=== PATIENT | female | born 2000 | race Two or more races ===

== ENCOUNTER 2024-05-01 09:59 | Observation (INO) | payer OTHER, SELFPAY ==
[2024-05-01 04:25] VITALS: BP 128/64
--- NOTE | 2024-05-01 04:29 | ED.GENMED ---
History of Present Illness
<Amrita Sharpe MD, Resident - Last Filed: 05/01/24 05:26>
General
Chief Complaint: Abdominal Symptoms
Source: patient
Time Seen by Provider: 05/01/24 04:28
History of Present Illness
History of Present Illness:
The patient is a 23 year old female who presented to ER today complaining from nausea, diarrhea and abdominal pain. The patient reported that she ate a stake 2 days ago and believes she had food poisoning from this stake. She started to have
abdominal pain/cramps, nausea, vomiting 2 days ago. She denies blood with her vomiting or stool. She also reports feeling chills and fever for last 2 days. the patient denies chest pain, SOB, burning while urinating.
PMH: ADHD. She is not on any medication . Denies other chronic medical diseases.
If applicable-neuro sx onset
Date of onset of symptoms: 05/01/24
Phy Exam
<Amrita Sharpe MD, Resident - Last Filed: 05/01/24 05:26>
General Physical Exam
General Presentation: moderate distress
General age: appears stated age
General Skin: dry
General Mental: alert
Pulmonary Exam
Pulmonary Exam: no respiratory distress
Gastrointestinal Exam
Gastrointestinal Exam: soft, no cva tenderness and tender
Palpation: left upper quadrant: Minimal tenderness and right upper quadrant: Minimal tenderness
Neurological Exam
Neurological Exam: alert and oriented x3
Course
<Amrita Sharpe MD, Resident - Last Filed: 05/01/24 05:26>
Orders/Labs/Results
Orders:
Orders
05/01/24 04:33
0.9% Sodium Chloride 1000 ml [Nss] 1,000 ml IV BOLUS
Ondansetron Injectable [Zofran] 4 mg IV NOW STA
Test Result ONCE
05/01/24 04:40
Famotidine [Pepcid] 20 mg IV NOW STA
05/01/24 04:49
Complete Blood Count/With Diff Urgent
Comprehensive Metabolic Panel Urgent
HCG, Serum Qualitative Screen Urgent
Lipase Urgent
05/01/24 04:57
Sucralfate [Carafate] 1 gram PO NOW STA
05/01/24 05:15
Diphenhydramine [Benadryl] 25 mg IV NOW STA
Metoclopramide [Reglan] 10 mg IV NOW STA
05/01/24 07:25
0.9% Sodium Chloride 1000 ml [Nss] 1,000 ml IV BOLUS
Ondansetron Injectable [Zofran] 4 mg IV NOW STA
05/01/24 09:26
Morphine Sulfate 2 mg IV NOW STA
05/01/24 09:42
Admit/Transfer Patient As Directed
Co-Sign Provider:
Level of Care: Observation services
Assign to:: Medical/Surgical
Physician / Group: Dr Crane
Diagnosis: Nausea vomiting diarrhea
Reason for Hospitalization: pte p/w n/v/d
Code Status As Directed
Resuscitation Status: Full Code
PRN Pain Medication Management As Directed
May give lesser potent ordered pain med per pt: Yes
preference::
Protocol:: Medication orders for pain may be administered in a
manner that supports deferring to patient preference
when the pt is:
- Requesting an ordered lesser potent pain medication.
Least to most potent pain medications are defined
as: acetaminophen < NSAID < tramadol < opioids
(morphine, oxycodone, hydromorphone).
- Requesting a lesser dose of the same medication IF
ORDERED.
- Requesting a less intrusive route of administration
if both routes are prescribed by the provider (PO <
IV).
05/01/24 09:44
Ondansetron Injectable [Zofran] 4 mg IV NOW STA
05/01/24 Lunch
NPO
Allow oral meds: No
Allow clear liquids: No
0.9% Sodium Chloride 1000 ml [Nss] 1,000 ml IV 125 mls/hr
Pantoprazole [Protonix IV] 40 mg IV DAILY
05/01/24 11:11
Bisacodyl [Dulcolax] 10 mg RECTAL [id number] PRN
Docusate W/Senna [Senokot-S] 1 tablet PO BIDPRN PRN
Morphine Sulfate 2 mg IV Q4HPRN PRN
Ondansetron Injectable [Zofran] 4 mg IV Q6HPRN PRN
Polyethylene Glycol Powder [Miralax] 17 grams PO DAILYPRN PRN
05/01/24 11:11
Activity As Directed
Activity Level: Out of Bed-Early Mobility
Pneumatic Compression Sleeves As Directed
Type: Knee high
Vital Signs As Directed
Frequency: Per unit guidelines
DX Deep Vein Thrombosis Video Routine
05/01/24 13:20
Urinalysis Reflex To Culture Routine
Date Specimen was Collected: 05/01/24
Time Specimen was Collected: 13:14
05/02/24 06:00
Basic Metabolic Panel IN AM
Complete Blood Count/With Diff IN AM
Abnormal Lab Results
05/01/24
04:49
Absolute Neuts (auto) 9.4 H 10^3/uL
(1.4-6.5)
Absolute Lymphs (auto) 0.7 L 10^3/uL
(1.2-3.4)
Neutrophils % 88.5 H %
(42.2-75.2)
Lymphocytes % 6.1 L %
(20.5-51.1)
Glucose 122 H mg/dl
(70-99)
05/01/24 04:49
05/01/24 04:49
Vital Signs
Initial and Last Documented VS:
Initial Vital Signs
Pulse Resp BP Pulse Ox
60 24 128/64 100
05/01/24 04:25 05/01/24 04:25 05/01/24 04:25 05/01/24 04:25
Last Documented Vital Signs
Temp Pulse Resp BP Pulse Ox
97.9 F 96 14 99/64 97
05/01/24 11:28 05/01/24 11:28 05/01/24 11:28 05/01/24 11:28 05/01/24 11:28
<Scott Borden, DO - Last Filed: 05/01/24 06:06>
Orders/Labs/Results
Orders:
Orders
05/01/24 04:33
0.9% Sodium Chloride 1000 ml [Nss] 1,000 ml IV BOLUS
Ondansetron Injectable [Zofran] 4 mg IV NOW STA
Test Result ONCE
05/01/24 04:40
Famotidine [Pepcid] 20 mg IV NOW STA
05/01/24 04:49
Complete Blood Count/With Diff Urgent
Comprehensive Metabolic Panel Urgent
HCG, Serum Qualitative Screen Urgent
Lipase Urgent
05/01/24 04:57
Sucralfate [Carafate] 1 gram PO NOW STA
05/01/24 05:15
Diphenhydramine [Benadryl] 25 mg IV NOW STA
Metoclopramide [Reglan] 10 mg IV NOW STA
05/01/24 07:25
0.9% Sodium Chloride 1000 ml [Nss] 1,000 ml IV BOLUS
Ondansetron Injectable [Zofran] 4 mg IV NOW STA
05/01/24 09:26
Morphine Sulfate 2 mg IV NOW STA
05/01/24 09:42
Admit/Transfer Patient As Directed
Co-Sign Provider:
Level of Care: Observation services
Assign to:: Medical/Surgical
Physician / Group: Dr Crane
Diagnosis: Nausea vomiting diarrhea
Reason for Hospitalization: pte p/w n/v/d
Code Status As Directed
Resuscitation Status: Full Code
PRN Pain Medication Management As Directed
May give lesser potent ordered pain med per pt: Yes
preference::
Protocol:: Medication orders for pain may be administered in a
manner that supports deferring to patient preference
when the pt is:
- Requesting an ordered lesser potent pain medication.
Least to most potent pain medications are defined
as: acetaminophen < NSAID < tramadol < opioids
(morphine, oxycodone, hydromorphone).
- Requesting a lesser dose of the same medication IF
ORDERED.
- Requesting a less intrusive route of administration
if both routes are prescribed by the provider (PO <
IV).
05/01/24 09:44
Ondansetron Injectable [Zofran] 4 mg IV NOW STA
05/01/24 Lunch
NPO
Allow oral meds: No
Allow clear liquids: No
0.9% Sodium Chloride 1000 ml [Nss] 1,000 ml IV 125 mls/hr
Pantoprazole [Protonix IV] 40 mg IV DAILY
05/01/24 11:11
Bisacodyl [Dulcolax] 10 mg RECTAL [id number] PRN
Docusate W/Senna [Senokot-S] 1 tablet PO BIDPRN PRN
Morphine Sulfate 2 mg IV Q4HPRN PRN
Ondansetron Injectable [Zofran] 4 mg IV Q6HPRN PRN
Polyethylene Glycol Powder [Miralax] 17 grams PO DAILYPRN PRN
05/01/24 11:11
Activity As Directed
Activity Level: Out of Bed-Early Mobility
Pneumatic Compression Sleeves As Directed
Type: Knee high
Vital Signs As Directed
Frequency: Per unit guidelines
DX Deep Vein Thrombosis Video Routine
05/01/24 13:20
Urinalysis Reflex To Culture Routine
Date Specimen was Collected: 05/01/24
Time Specimen was Collected: 13:14
05/02/24 06:00
Basic Metabolic Panel IN AM
Complete Blood Count/With Diff IN AM
Abnormal Lab Results
05/01/24
04:49
Absolute Neuts (auto) 9.4 H 10^3/uL
(1.4-6.5)
Absolute Lymphs (auto) 0.7 L 10^3/uL
(1.2-3.4)
Neutrophils % 88.5 H %
(42.2-75.2)
Lymphocytes % 6.1 L %
(20.5-51.1)
Glucose 122 H mg/dl
(70-99)
05/01/24 04:49
05/01/24 04:49
Vital Signs
Initial and Last Documented VS:
Initial Vital Signs
Pulse Resp BP Pulse Ox
60 24 128/64 100
05/01/24 04:25 05/01/24 04:25 05/01/24 04:25 05/01/24 04:25
Last Documented Vital Signs
Temp Pulse Resp BP Pulse Ox
97.9 F 96 14 99/64 97
05/01/24 11:28 05/01/24 11:28 05/01/24 11:28 05/01/24 11:28 05/01/24 11:28
<Checo Shepard, DO - Last Filed: 05/01/24 13:49>
Orders/Labs/Results
Orders:
Orders
05/01/24 04:33
0.9% Sodium Chloride 1000 ml [Nss] 1,000 ml IV BOLUS
Ondansetron Injectable [Zofran] 4 mg IV NOW STA
Test Result ONCE
05/01/24 04:40
Famotidine [Pepcid] 20 mg IV NOW STA
05/01/24 04:49
Complete Blood Count/With Diff Urgent
Comprehensive Metabolic Panel Urgent
HCG, Serum Qualitative Screen Urgent
Lipase Urgent
05/01/24 04:57
Sucralfate [Carafate] 1 gram PO NOW STA
05/01/24 05:15
Diphenhydramine [Benadryl] 25 mg IV NOW STA
Metoclopramide [Reglan] 10 mg IV NOW STA
05/01/24 07:25
0.9% Sodium Chloride 1000 ml [Nss] 1,000 ml IV BOLUS
Ondansetron Injectable [Zofran] 4 mg IV NOW STA
05/01/24 09:26
Morphine Sulfate 2 mg IV NOW STA
05/01/24 09:42
Admit/Transfer Patient As Directed
Co-Sign Provider:
Level of Care: Observation services
Assign to:: Medical/Surgical
Physician / Group: Dr Crane
Diagnosis: Nausea vomiting diarrhea
Reason for Hospitalization: pte p/w n/v/d
Code Status As Directed
Resuscitation Status: Full Code
PRN Pain Medication Management As Directed
May give lesser potent ordered pain med per pt: Yes
preference::
Protocol:: Medication orders for pain may be administered in a
manner that supports deferring to patient preference
when the pt is:
- Requesting an ordered lesser potent pain medication.
Least to most potent pain medications are defined
as: acetaminophen < NSAID < tramadol < opioids
(morphine, oxycodone, hydromorphone).
- Requesting a lesser dose of the same medication IF
ORDERED.
- Requesting a less intrusive route of administration
if both routes are prescribed by the provider (PO <
IV).
05/01/24 09:44
Ondansetron Injectable [Zofran] 4 mg IV NOW STA
05/01/24 Lunch
NPO
Allow oral meds: No
Allow clear liquids: No
0.9% Sodium Chloride 1000 ml [Nss] 1,000 ml IV 125 mls/hr
Pantoprazole [Protonix IV] 40 mg IV DAILY
05/01/24 11:11
Bisacodyl [Dulcolax] 10 mg RECTAL [id number] PRN
Docusate W/Senna [Senokot-S] 1 tablet PO BIDPRN PRN
Morphine Sulfate 2 mg IV Q4HPRN PRN
Ondansetron Injectable [Zofran] 4 mg IV Q6HPRN PRN
Polyethylene Glycol Powder [Miralax] 17 grams PO DAILYPRN PRN
05/01/24 11:11
Activity As Directed
Activity Level: Out of Bed-Early Mobility
Pneumatic Compression Sleeves As Directed
Type: Knee high
Vital Signs As Directed
Frequency: Per unit guidelines
DX Deep Vein Thrombosis Video Routine
05/01/24 13:20
Urinalysis Reflex To Culture Routine
Date Specimen was Collected: 05/01/24
Time Specimen was Collected: 13:14
05/02/24 06:00
Basic Metabolic Panel IN AM
Complete Blood Count/With Diff IN AM
Abnormal Lab Results
05/01/24
04:49
Absolute Neuts (auto) 9.4 H 10^3/uL
(1.4-6.5)
Absolute Lymphs (auto) 0.7 L 10^3/uL
(1.2-3.4)
Neutrophils % 88.5 H %
(42.2-75.2)
Lymphocytes % 6.1 L %
(20.5-51.1)
Glucose 122 H mg/dl
(70-99)
05/01/24 04:49
05/01/24 04:49
Vital Signs
Initial and Last Documented VS:
Initial Vital Signs
Pulse Resp BP Pulse Ox
60 24 128/64 100
05/01/24 04:25 05/01/24 04:25 05/01/24 04:25 05/01/24 04:25
Last Documented Vital Signs
Temp Pulse Resp BP Pulse Ox
97.9 F 96 14 99/64 97
05/01/24 11:28 05/01/24 11:28 05/01/24 11:28 05/01/24 11:28 05/01/24 11:28
<Amrita Sharpe MD, Resident - Last Filed: 05/01/24 05:26>
MDM/Problems Addressed
Differential Diagnosis Includes:
Gastroenteritis, IBS, GERD,Pancreatitis, UTI
MDM/Problems Addressed:
CBC, CMP, lipase and B-HCG was ordered. Patient was given IV saline, famotidine, ondansetron and PO sucralfate.
CBC and CMP results are unremarkable.
<Checo Shepard DO - Last Filed: 05/01/24 13:49>
*Critical Care Note
Total Time (30-74mins, 75-104mins- exclusive of procedures): Not Applicable
<Checo Shepard DO - Last Filed: 05/01/24 13:49>
Update Note
Update Note:
Patient with continued vomiting and diarrhea, blood in stool. Abdominal cramping. Despite IV fluids and Zofran. Patient continues to vomit. Admit to hospitalist.
ED Attending Note
<Amrita Sharpe MD, Resident - Last Filed: 05/01/24 05:26>
-
Portions of this chart may have been created with voice recognition software.� Occasional wrong word or��sound alike� substitutions may have occurred due to the inherent limitations of voice recognition software.
<Scott Borden, DO - Last Filed: 05/01/24 06:06>
ED Attending Note
Patient seen and examined by attending physician: Yes
I performed the substantive portion of visit, reviewed & personally made and approve the management plan that is documented in note by myself or HIMA.: Yes
ED Attending Note:
Pleasant 23-year-old female presents with nausea diarrhea and abdominal pain. She was at a steak house and ate a steak 2 days ago. She feels that she had food poisoning from this. Denies fever but does report some chills. Denies chest pain or
shortness of breath. Patient denies alcohol in excess. Patient was seen in conjunction with the resident. I have reviewed and agree with the history and treatment plan presented. On my independent physical exam, patient is awake, alert, and
oriented x3, still nauseated. Skin is pale. Heart is regular rate and rhythm. Lungs clear to auscultation bilaterally without wheezes rales or rhonchi. Abdomen soft with generalized tenderness. Moves all 4 extremities.
Discharge Plan
Departure
Patient Disposition: Admit
Date of Disposition: 05/01/24
Time of Disposition: 06:04
Admit to: Med/Surg
Presentation/result/management discussed w/ accepting MD/DO: Hospitalist
Patient with high blood pressure during this ER visit?: Yes
Condition: Good
Discharge Problem:
Nausea & vomiting, Abdominal pain, Diarrhea
Interventions
Interventions:
*Risk Screen - Suicide Last Done: 05/01/24 04:25
*General Assessment Last Done: 05/01/24 06:55
*Neglect/Abuse Screening Last Done: 05/01/24 04:25
ED- Fall Risk Assessment Last Done: 05/01/24 06:55
*ED COVID-19 Vaccine History Last Done: 05/01/24 11:05
*Nursing Disposition Last Done: 05/01/24 11:05
UD-Oepyci-Nyndxqxtbb Assessment Last Done: 05/01/24 06:55
Discharge Date and Time
Discharge Date/Time: 05/01/24 11:05
[2024-05-01] MEDS: ZOFRAN 4 MG IV ×5 (04:55→19:47)
[2024-05-01] MEDS: PEPCID 20 MG IV (04:55)
[2024-05-01] MEDS: NSS 1000 IV ×4 (04:55→17:28)
[2024-05-01 05:11] LABS: % Basophils 0.3 % (0-2); % Eosinophils 0.5 % (0-6); % Immature Granulocytes 0.3 % (0-0.5); % Lymphocytes 6.1 % (20.5-51.1); % Monocytes 4.3 % (1.7-9.3); % Neutrophils 88.5 % (42.2-75.2); Absolute Eosinophils 0.1 10^3/uL (0-0.7); Absolute Lymphocytes 0.7 10^3/uL (1.2-3.4); Absolute Monocytes 0.5 10^3/uL (0.1-0.6); Absolute Neutrophils 9.4 10^3/uL (1.4-6.5); Hematocrit 37.7 % (37.0-47.0); Hemoglobin 13.2 g/dL (12.0-16.0); Mean Corpuscular Hgb 30.4 pg (27.0-31.0); Mean Corpuscular Volume 86.9 fL (81.0-99.0); Mean Platelet Volume 9.2 fL (7.4-10.4); Nucleated Red Blood Cells % 0 %; Platelet Count 290 10^3/uL (130-400); Red Blood Cell Count 4.34 10^6/uL (4.20-5.40); Red Cell Dist. Width 12.1 % (11.5-14.5); White Blood Cell Count 10.6 10^3/uL (4.8-10.8)
[2024-05-01 05:17] LABS: HCG, Serum Qualitative Screen Negative
[2024-05-01] MEDS: BENADRYL 25 MG IV (05:19)
[2024-05-01] MEDS: REGLAN 10 MG IV (05:19)
[2024-05-01 05:21] LABS: ALT (SGPT) 17 U/L (0-35); AST (SGOT) 26 U/L (14-36); Albumin 4.6 g/dl (3.5-5.0); Alkaline Phosphatase 66 U/L (38-126); Blood Urea Nitrogen 15 mg/dl (7-17); Calcium 9.8 mg/dl (8.4-10.2); Carbon Dioxide 23 mmol/L (22-30); Chloride 107 mmol/L (98-107); Glucose 122 mg/dl (70-99); Lipase 96 U/L (23-300); Potassium 4.1 mmol/L (3.5-5.1); Sodium 138 mmol/L (135-145); Total Bilirubin 0.7 mg/dl (0.2-1.3); eGFR > 60.00
[2024-05-01] MEDS: MORPHINE SULFATE 2 MG IV (09:38)
--- NOTE | 2024-05-01 09:44 | HPS.HSE ---
Family Physician
-
Family Physician: JOSE Phelan
Chief Complaint
-
n/v/d
History of Present Illness
Patient 23 years old female with no significant past medical history came into the hospital nausea vomiting or diarrhea. Patient was on a cruise last week and couple of days ago went out to dinner and since then she has been having significant
abdominal pain with nausea vomiting not able to keep anything down. She is also having multiple episodes of diarrhea, watery stools but some mucous and blood-tinged stools. Patient continues to feel worse and decided to come to the hospital. No
fevers or chills. No chest pain or shortness of breath. No dysuria urgency or frequency. In the ER, white blood cell count 10.6 and hemoglobin 13.2. She was referred to hospitalist service for further evaluation.
Medical History
Past Medical History
Past Medical History: Reports Other (No significant past medical history except for [facility])
Past Surgical History: Reports None
Social History
Tobacco: Non-smoker
Alcohol: None
Drug: None
Family History
Family History: Not pertinent
Allergies / Home Medications
Allergies reflects when Allergies were last updated in [facility].
Home Medications with original date entered in [facility]
Allergy/Medication List:
Allergies
Allergy/AdvReac Type Severity Reaction Status Date / Time
No Known Allergies Allergy Verified 05/01/24 04:27
Home Medications
dextroamphetamine-amphetamine ER 10 mg 24hr capsule,extend release 10 mg PO DAILY 05/01/24
therapeutic multivitamin 1 tab PO DAILY 05/01/24
Review of Systems
-
A 12 point ROS was completed and negative except as noted: Yes
Physical Exam
Vital Signs
Vital Signs
Pulse Resp BP Pulse Ox
60 24 128/64 100
05/01/24 04:25 05/01/24 04:25 05/01/24 04:25 05/01/24 04:25
Physical exam:
General: Acutely ill
HEENT: Normocephalic, Atraumatic and Dry Mucous Membranes
Respiratory: Clear to Auscultation; Negative Wheezes, Rales or Rhonchi
Cardiac: Regular Rhythm and S1/S2
GI: Soft, tender and Nondistended
Musculoskeletal: No Clubbing, No Cyanosis and No Edema
Neuro: Awake, Alert and Oriented
Psych: Calm
Physical Exam
General: Other
Laboratory Results
-
05/01/24 04:49
05/01/24 04:49
Laboratory Results
Total Bilirubin 0.7 mg/dl (0.2-1.3) 05/01/24 04:49
AST 26 U/L (14-36) 05/01/24 04:49
ALT 17 U/L (0-35) 05/01/24 04:49
Alkaline Phosphatase 66 U/L (38-126) 05/01/24 04:49
Lipase 96 U/L (23-300) 05/01/24 04:49
Data Reviewed
-
Lab Data: Labs Reviewed by me
Impression/Plan
-
IMPRESSION:
Patient 23 years female came into the hospital nausea vomiting and diarrhea. Her symptoms are persistent and she is already dehydrated so she will need to be observed in the hospital.
PLAN:
Acute gastroenteritis, likely infectious etiology:
Aggressive IV fluid hydration
Keep her n.p.o. for today
Antiemetic
Pain control
Stool cultures and C. difficile
Discussed with family at bedside
Symptomatic care
ADD:
Will resume her meds if any when able to take oral
Dehydration:
IV fluid
DVT prophylaxis:
SCDs
CODE STATUS:
Full code
Time spent 55-minute
[2024-05-01 11:00] VITALS: BP 119/58
[2024-05-01 11:28] VITALS: BP 99/64
[2024-05-01] MEDS: PROTONIX IV 40 MG IV (11:56)
--- NOTE | 2024-05-01 12:26 | CM ---
Addendum entered by Erin Lopez 05/01/24 12:32:
PCP: Bonnie Curtis
Pharmacy: [facility]
Original Note:
Patient seen at bedside with father, sister, future mil.
Observation form explained & signed by father. In chart.
Lives in an apartment with fiance & father.
PLOF: Independent & drives.
No DME
PLAN: Discharge to home when stable. No anticipated needs.
[2024-05-01 13:43] LABS: Urine Albumin Negative (Neg - Trace); Urine Bilirubin Negative (Negative); Urine Character Clear (Clear); Urine Color Yellow; Urine Glucose Negative (Negative); Urine Ketone Negative (Negative); Urine Leukocyte Negative (Negative); Urine Nitrite Negative (Negative); Urine Occult Blood Negative (Negative); Urine Urobilinogen Negative (Neg - 1+)
[2024-05-01] MEDS: MAALOX 30 ML PO (14:22)
[2024-05-01 15:00] VITALS: BP 97/57
[2024-05-01] MEDS: OFIRMEV 100 IV (18:42)
[2024-05-01 23:20] VITALS: BP 95/59
[2024-05-02] MEDS: ZOFRAN 4 MG IV ×2 (02:23→08:58)
[2024-05-02] MEDS: OFIRMEV 100 IV (02:59)
[2024-05-02] MEDS: NSS 1000 IV ×3 (03:00→17:26)
[2024-05-02 07:30] VITALS: BP 95/52
[2024-05-02 08:36] LABS: Hemoglobin 11.2 g/dL (12.0-16.0); Mean Corpuscular Hgb 31.1 pg (27.0-31.0); Mean Corpuscular Volume 88.9 fL (81.0-99.0); Mean Platelet Volume 9.7 fL (7.4-10.4); Platelet Count 223 10^3/uL (130-400); Red Cell Dist. Width 12.3 % (11.5-14.5); White Blood Cell Count 3.5 10^3/uL (4.8-10.8)
--- NOTE | 2024-05-02 08:45 | W.PN.HOSP.TC ---
Addendum entered and electronically signed by Javier Crane MD 05/02/24 16:21:
Also hypokalemia, repleted.
Addendum entered and electronically signed by Javier Crane MD 05/02/24 14:12:
Patient with persistent nausea and unable to tolerate clear liquid diet today so we will ask GI to see her today.
Original Note:
Today's Communication/Plan
-
IV fluid. Start clear liquid diet today.
Assessment / Plan
Assessment / Plan
Physical exam:
General: Acutely ill but nontoxic
HEENT: Normocephalic, Atraumatic and Dry Mucous Membranes
Respiratory: Clear to Auscultation; Negative Wheezes, Rales or Rhonchi
Cardiac: Regular Rhythm and S1/S2
GI: Soft, Nontender and Nondistended
Musculoskeletal: No Clubbing, No Cyanosis and No Edema
Neuro: Awake, Alert and Oriented
Psych: Calm
A/P:
Acute gastroenteritis, likely infectious etiology:
Continue aggressive IV fluid hydration
IV Protonix and add sucralfate
Will start clear liquid diet today and will advance as tolerated
Continue antiemetic
Continue pain control with IV Tylenol and discontinue morphine
Stool cultures pending
C. difficile negative
Symptomatic care
Hold off on antibiotics being afebrile with normal WBC and Shiga toxin pending
Mild anemia:
Dilutional
Hemoglobin 13.2--> 11.2-->11.1
Continue to monitor
ADD:
Will resume her meds if any when able to take oral
Dehydration:
IV fluid
DVT prophylaxis:
SCDs
CODE STATUS:
Full code
Anticipated Discharge: 24 - 48 hours
Subjective/Interval History
-
Date of Service: May 02, 2024
Patient still having diarrhea and nausea, no vomiting. Abdominal discomfort but overall improving. Afebrile
Objective Data
-
Labs:
Laboratory Results
05/02/24
06:53
WBC 3.5 L
Hgb 11.2 L
Hct 32.0 L
Plt Count 223 D
Sodium Pending
Potassium Pending
Chloride Pending
Carbon Dioxide Pending
BUN Pending
Creatinine Pending
Glucose Pending
Calcium Pending
Vital Signs:
Vital Signs
Temp Pulse Resp BP Pulse Ox
97.9 F 75 20 95/52 98
05/02/24 07:30 05/02/24 07:30 05/02/24 07:30 05/02/24 07:30 05/02/24 07:30
I&O
05/01/24 05/02/24 05/03/24
06:59 06:59 06:59
Intake Total 0 / 0
Balance 0 / 0
[2024-05-02] MEDS: PROTONIX IV 40 MG IV (08:49)
[2024-05-02] MEDS: NSS (PRESERVATIVE FREE) 10 ML IV (08:50)
[2024-05-02 08:56] LABS: % Basophils 0.3 % (0-2); % Eosinophils 0.6 % (0-6); % Immature Granulocytes 0.6 % (0-0.5); % Monocytes 8.9 % (1.7-9.3); % Neutrophils 66.6 % (42.2-75.2); Absolute Lymphocytes 0.8 10^3/uL (1.2-3.4); Absolute Monocytes 0.3 10^3/uL (0.1-0.6); Absolute Neutrophils 2.3 10^3/uL (1.4-6.5); Blood Urea Nitrogen 8 mg/dl (7-17); Calcium 7.6 mg/dl (8.4-10.2); Carbon Dioxide 20 mmol/L (22-30); Chloride 108 mmol/L (98-107); Estimated Creatinine Clearance > 125 ml/min; Glucose 88 mg/dl (70-99); Nucleated Red Blood Cells % 0 %; Potassium 3.2 mmol/L (3.5-5.1); Sodium 134 mmol/L (135-145); eGFR > 60.00
[2024-05-02 09:11] LABS: TSH Reflex To Free T4 0.95 uIU/ml (0.47-4.68)
--- NOTE | 2024-05-02 10:59 | CM ---
Patient seen at bedside with family.
Stool neg c-diff. Pending stool cx.
states still with n/v.
PLAN: Discharge to home when stable. No anticipated needs.
[2024-05-02 11:25] LABS: Hematocrit 31.8 % (37.0-47.0); Hemoglobin 11.1 g/dL (12.0-16.0)
[2024-05-02] MEDS: CARAFATE 1 GRAM PO ×3 (11:36→21:00)
[2024-05-02] MEDS: COMPAZINE 10 MG IV (11:36)
[2024-05-02 12:30] LABS: Glycohemoglobin (HgbA1c) 5.1 % (4.0-5.6)
--- NOTE | 2024-05-02 14:43 | CON.GI ---
Addendum entered and electronically signed by Mateo Jo MD 05/02/24 16:58:
I saw and examined the patient.
The PRINCIPAL HARDWARE ARCHITECT or PA's note was reviewed and I agree with the note.
Comment: 20yo female presents with n/v/d after eating at rare piece of steak at restaurant on Wednesday. Boyfriend had similar symptoms and recovered, but her symptoms persist. Prior to this episode she was not having any chronic GI symptoms
REC:
Await stool culture results. C diff negative. Check norovirus
Advance diet as tolerated
Suspect infectious gastroenteritis and should resolve with supportive care
hold off on abx at this time
If no better, check CT abd/pelvis
Original Note:
Consultation
-
Date/Time Consultation Requested: 05/02/24 1400
Date/Time Consultation Performed: 05/02/24 1445
Requesting Provider: Guevara Crane MD
Performing Provider: JOSE Nesbitt, Mateo Jo MD
Reason for Consultation: abdominal pain with nausea and vomiting
Medical History
Chief Complaint / HPI
Chief Complaint: abdominal pain
History of Present Illness:
Pt is a 23yo with hx ADHD with onset of nausea, vomiting and diarrhea. Pt with recent cruise April 21 til . She was feeling well on return and went to [place] [id number] on 04/30 with onset of nausea/vomiting large volume abdominal pain with diarrhea
2 hours after eating. Boyfriend similar symptoms and he is now recovered. She reports at worse pain was 10/10 and now reports 2/10 with some nausea and now starting to take some liquids. On admission noted with some drop in hbg 13.2 to 11.1
with hydration and drop in k to 3.2. c-diff neg with stool cx pending.
Pt denies any chronic GI symptoms and no prior GI work up in past. No family hx IBD. Ct not completed on admission. She denies Marijuana use and takes social ETOH 1 drink occasionally. No new medications.
Past Medical History
Past Medical History: Psychiatric (ADHD)
Social History
Tobacco: Non-Smoker
Alcohol: Occasional
Drug: None
Living: With Family
Employment: Other (self employed )
Family History
Family History: Other (no family hx crohns/colitis )
Allergies / Home Medications
Allergy/AdvReac Type Severity Reaction Status Date / Time
No Known Allergies Allergy Verified 05/01/24 04:27
�Medication �Instructions �Recorded
dextroamphetamine-amphetamine ER 10 mg PO DAILY ADHD 05/01/24
10 mg 24hr capsule,extend release
therapeutic multivitamin 1 tab PO DAILY Supplement 05/01/24
Review of Systems
-
History Source: Patient and Family
Constitutional: Reports No Symptoms
EENT: Reports No Symptoms
Respiratory: Reports No Symptoms
Abdomen/GI: Reports Abdominal Pain, Nausea, Vomiting and Diarrhea
: Reports No Symptoms
Musculoskeletal: Reports No Symptoms
Skin: Reports No Symptoms
Neurological: Reports No Symptoms
Endocrine: Reports No Symptoms
Hematologic/Lymphatic: Reports No Symptoms
Vital Signs
Temp Pulse Resp BP Pulse Ox
97.9 F 75 20 95/52 98
05/02/24 07:30 05/02/24 07:30 05/02/24 07:30 05/02/24 07:30 05/02/24 07:30
Physical Exam
Exam
General: Well Developed, Well Nourished and No Apparent Distress
HEENT: Normocephalic and Anicteric
Respiratory: Clear
Cardiac: Regular Rhythm
GI: Soft, Tender (mild diffuse ) and Distended (minimal )
Musculoskeletal: No Clubbing and No Cyanosis
Skin: Warm and Dry
Neuro: Awake, Alert and AO x 3
Psych: Calm
Results
WBC 3.5 10^3/uL (4.8-10.8) L 05/02/24 06:53
Hgb 11.1 g/dL (12.0-16.0) L 05/02/24 10:46
Hct 31.8 % (37.0-47.0) L 05/02/24 10:46
MCV 88.9 fL (81.0-99.0) 05/02/24 06:53
Plt Count 223 10^3/uL (130-400) D 05/02/24 06:53
Absolute Neuts (auto) 2.3 10^3/uL (1.4-6.5) 05/02/24 06:53
Sodium 134 mmol/L (135-145) L 05/02/24 06:53
Potassium 3.2 mmol/L (3.5-5.1) L 05/02/24 06:53
Chloride 108 mmol/L (98-107) H 05/02/24 06:53
Carbon Dioxide 20 mmol/L (22-30) L 05/02/24 06:53
BUN 8 mg/dl (7-17) 05/02/24 06:53
Creatinine 0.6 mg/dL (0.6-1.0) 05/02/24 06:53
Calcium 7.6 mg/dl (8.4-10.2) L D 05/02/24 06:53
Total Bilirubin 0.7 mg/dl (0.2-1.3) 05/01/24 04:49
AST 26 U/L (14-36) 05/01/24 04:49
ALT 17 U/L (0-35) 05/01/24 04:49
Alkaline Phosphatase 66 U/L (38-126) 05/01/24 04:49
Lipase 96 U/L (23-300) 05/01/24 04:49
Diagnostic Image Results:
no imaging
Prior GI Procedures:
EGD: none
Colonoscopy: none
Assessment / Plan
-
Pt is a 23yo with hx ADHD with onset of nausea, vomiting and diarrhea. Pt with recent cruise April 21. She was feeling well on return and went to [place] [id number] on 04/30 with onset of nausea/vomiting large volume abdominal pain with diarrhea
2 hours after eating. Boyfriend similar symptoms and he is now recovered. She reports at worse pain was 10/10 and now reports 2/10 with some nausea and now starting to take some liquids. On admission noted with some drop in hbg 13.2 to 11.1
with hydration and drop in k to 3.2. c-diff neg with stool cx pending. Denies Marijuana use.
-sudden onset of nausea/vomiting/diarrhea after eating at [employer] [place]
-recent cruise returned 6 days prior to onset
-mild anemia with hydration
-hypokalemia
PLAN:
etiology of symptoms related to acute gastroenteritis- norovirus vs other
with large volume of emesis and bloating likely enteritis related
pt already feeling improved ok for clear diet-- has only taken minimal fluids today and asking about discharge
reviewed would need to ensure adequate intakes prior to discharge
will add norovirus testing
if tolerating clear can advance to low residue later today --
Ct held on admission if persistent symptoms consider imaging
correct K per hospitalist
reviewed with family likely self limiting process if continued symptoms or problems OP follow up with GI
-
-
Thank you for consultation and allowing me to participate in the patient's care. Please call the human resources communications manager GI physician during the after hours with any questions or concerns.
[2024-05-02 15:28] VITALS: BP 107/62
[2024-05-02] MEDS: KCL 40 MEQ PO ×2 (16:36→20:11)
[2024-05-02 23:17] VITALS: BP 113/68
--- NOTE | 2024-05-03 03:02 | W.PN.UPDATE ---
Update Note
Progress Note Update
informed by nurse that pt iv leaking. pt refusing restart and further ivf
eating and drinking adequately now
will dc per pt wishes
[2024-05-03] MEDS: TYLENOL 650 MG PO (03:05)
--- NOTE | 2024-05-03 03:16 | DOWNTIME ---
There was a [employer] Client Freelance Art Director Downtime on 05/03/2024 from 0100 to 05/03/2024 at 0252. Downtime documentation of patient's care, including medication administrations, has been reconciled in the electronic record per guidelines. Refer to the
patient's paper chart under the miscellaneous tab to see printed paper medication records and downtime forms.
[2024-05-03] MEDS: NSS IV (03:19)
--- NOTE | 2024-05-03 03:33 | PTCARENOTE ---
Patient insisted on discontinuing IVF and removing IV line despite education on hydration and having an IV line for emergencies. TURRET PUNCH OPERATOR notified and and made aware. IVF discontinued and IV removed. Patient tolerated well. Po fluids encouraged.
[2024-05-03 07:17] VITALS: BP 102/68
[2024-05-03] MEDS: CARAFATE 1 GRAM PO (08:15)
[2024-05-03] MEDS: NSS (PRESERVATIVE FREE) IV (08:18)
[2024-05-03] MEDS: PROTONIX IV IV (08:19)
[2024-05-03 08:25] LABS: Hematocrit 33.6 % (37.0-47.0); Hemoglobin 11.4 g/dL (12.0-16.0); Mean Corp Hgb Conc. 33.9 g/dL (33.0-37.0); Mean Corpuscular Hgb 30.6 pg (27.0-31.0); Mean Corpuscular Volume 90.3 fL (81.0-99.0); Mean Platelet Volume 9.9 fL (7.4-10.4); Platelet Count 207 10^3/uL (130-400); Red Blood Cell Count 3.72 10^6/uL (4.20-5.40); Red Cell Dist. Width 12.6 % (11.5-14.5); White Blood Cell Count 3.6 10^3/uL (4.8-10.8)
[2024-05-03 08:43] LABS: Blood Urea Nitrogen 2 mg/dl (7-17); Carbon Dioxide 24 mmol/L (22-30); Chloride 107 mmol/L (98-107); Estimated Creatinine Clearance > 125 ml/min; Glucose 83 mg/dl (70-99); Potassium 4.4 mmol/L (3.5-5.1); Sodium 136 mmol/L (135-145); eGFR > 60.00
--- NOTE | 2024-05-03 09:57 | PTCARENOTE ---
pt stated this morning that she wanted to leave. she was itching to go last night but was not allowed to according to her. pt stated that she felt better and had no need to be here. was advised to wait for the DrCarolyn to see her before d/c but patient
refused to wait. pt was made aware of the risks involved in leaving without DrCarolyn's orders and recommendations. IV removed, pt stable. Pt signed AMA and ambulated out of hospital with sister.
[2024-05-03 10:25] LABS: Absolute Neutrophils -Man Diff 1.1 10^3/uL (1.4-6.5); Band Neutrophils 3 % (0-3); Eosinophils 4 % (0-6); Lymphocytes 55 % (20-51); Monocytes 7 % (2-9); Segmented Neutrophils 29 % (42-75)
[2024-05-03 10:26] LABS: Atypical Lymphocytes 1 %
[2024-05-03 10:32] LABS: Platelets Checked YES
[2024-05-03 10:34] LABS: Normal RBC Morphology Yes; Total Cells Counted 100
--- NOTE | 2024-05-03 14:21 | W.PN.UPDATE ---
Update Note
Progress Note Update
Patient left AGAINST MEDICAL ADVICE prior to my interview and assessment. I did not meet this patient at all during this hospitalization.
--- NOTE | 2024-05-04 10:24 | W.DCSUMMARY ---
Discharge Summary
Discharge Data
Date of Admission: 05/01/24
Date of Discharge: 05/03/24
-
Pending Results: No
Hospital Course
Patient 23 years old female with history of ADHD came into the hospital nausea vomiting and diarrhea she was on a recent cruise prior to admission and also ate at a restaurant prior to coming into the hospital. Patient was kept n.p.o., IV fluids,
antiemetics, pain control. She was also placed on PPI. Her symptoms persisted and GI consulted. Patient quickly improved and she was started on diet. Patient did not wait for any more medical advice and since she felt better she signed AGAINST
MEDICAL ADVICE overnight and she left.
Discharge Plan
-
Patient Disposition: Against Medical Advice
Diet: Low Residue
Referrals:
Mateo Jo MD [Active] - (Call GI for follow up if any persistent symptoms after discharge )
Bonnie Curtis CRNP [Family Provider] -
Prescriptions:
No Action
Theragen Tablet
1 tab PO DAILY
dextroamphetamine-amphetamine 10 mg Capsule,Extended Release 24hr
10 mg PO DAILY
Discharge Date and Time
Discharge Date/Time: 05/03/24 09:48
Print Language: MAURITIAN
== END 2024-05-03 09:48 | disposition left against medical advice (07) ==
LOC: 4 WEST ACU 09:59
PROVIDERS: ADMITTING PHYSICIAN Hospitalist; ATTENDING PHYSICIAN Hospitalist; CONSULT PHYSICIAN Specialist; EMERGENCY PHYSICIAN Student in an Organized Health Care Education/Training Program; FAMILY PHYSICIAN Nurse Practitioner Family
DX: R11.2 Nausea with vomiting, unspecified (principal); R10.9 Unspecified abdominal pain; R50.9 Fever, unspecified; F90.9 Attention-deficit hyperactivity disorder, unspecified type; K92.1 Melena; E86.0 Dehydration; D64.9 Anemia, unspecified; E87.6 Hypokalemia
CPT/HCPCS: 80048; 80053; 81003; 83036; 83690; 84443; 84703; 85014; 85018; 85025; 87045; 87046; 87077; 87324; 87427; 87449; 96361; 96374; 96375; 96376; 99284; G0378